=== PATIENT | male | born 1990 | race Caucasian/White ===

== ENCOUNTER 2019-02-24 11:46 | Emergency (ER) | payer SELFPAY ==
[~2019-02-24] VITALS: Ht 175.3 cm; Wt 68.0 kg
[2019-02-24 11:48] VITALS: BP 125/88
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
--- NOTE | 2019-02-24 11:52 | NUR ---
DR. KINGSLEY BEDSIDE EVALUATING PT
--- NOTE | 2019-02-24 11:52 | NUR ---
1138-- PT BIBA BLS TO ER BED 8
[2019-02-24] MEDS ORDERED: KETOROLAC 60 MG/2 ML VIAL IM ONE (11:55)
[2019-02-24 12:01] VITALS: BP 121/86
--- NOTE | 2019-02-24 12:27 | NUR ---
Patient appears to be resting in bed. Vital Signs within normal limits. Respirations even and unlabored.
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
--- NOTE | 2019-02-24 12:52 | NUR ---
Patient discharged with v/s stable. Written and verbal after care instructions given and explained. Patient alert, oriented and verbalized understanding of instructions. Wheel Chair Assisted with to ER ANTHONY. All questions addressed prior to discharge. ID band removed. Patient advised to follow up with PMD. Rx of NAPROSYN given. Patient educated on indication of medication including possible reaction and side effects. Opportunity to ask questions provided and answered. HOMELESS PT WAIVER FROM GIVEN TO PT.
== END 2019-02-24 12:52 | disposition home or self-care (01) ==
LOC: MED 11:46
DX: S83.91XA Sprain of unspecified site of right knee, initial encounter (principal); V19.9XXA Pedal cyclist (driver) (passenger) injured in unspecified traffic accident, initial encounter; Y93.89 Activity, other specified; Y92.89 Other specified places as the place of occurrence of the external cause; Y99.8 Other external cause status
CPT/HCPCS: 73562; 96372; 99283; J1885; Q0092

== ENCOUNTER 2021-09-30 09:32 | Emergency (ER) | payer SELFPAY ==
[~2021-09-30] VITALS: Ht 175.3 cm; Wt 72.6 kg
[2021-09-30 09:38] VITALS: BP 124/72
--- NOTE | 2021-09-30 09:42 | NUR ---
pt clarissa and taken to chair A
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
--- NOTE | 2021-09-30 09:50 | NUR ---
ATTEMPTED TO CALL PATIENT AND NO WHERE TO BE FOUND
--- NOTE | 2021-09-30 10:00 | NUR ---
ATTEMPTED TO CALL PATIENT AND NO ANSWER - PATIENT ELOPED
--- NOTE | 2021-09-30 10:05 | NUR ---
PATIENT LEFT WITHOUT BEING SEEN BY DR. LEWIS. NO FURTHER CARE PROVIDED FOR PATIENT.
== END 2021-09-30 09:50 | disposition left against medical advice (07) ==
LOC: MED 09:32
DX: M25.561 Pain in right knee (principal); Z53.21 Procedure and treatment not carried out due to patient leaving prior to being seen by health care provider; W19.XXXA Unspecified fall, initial encounter; Y93.89 Activity, other specified; Y92.89 Other specified places as the place of occurrence of the external cause; Y99.8 Other external cause status